=== PATIENT | male | born 1990 | race Caucasian/White ===

== ENCOUNTER 2021-01-22 14:44 | Emergency (ER) | payer BC, SELFPAY ==
[2021-01-22 15:19] VITALS: BP 125/72; PULSE 87; RESP 18; TEMP 36.7; O2SAT 98; BMI 23.4
--- NOTE | 2021-01-22 15:45 | ED_ITS ---
HPI - Headache General: Chief Complaint: Headache Stated Complaint: HEAD PAIN Time Seen by Provider: 01/22/21 15:29 History of Present Illness: HPI Narrative: Patient's had a muscle contraction headache right side that is responded well to Toradol but not follow-up Flexeril. Patient has a sinus infection has been fine the last week and a half also. Headaches been intermittent the last week. Hurts when he looks down and moves his head. Works at a local [employer] MD elicited complaint: headache Onset (ago): day(s) Onset description: gradually Associated symptoms: Reports other (Sinus infection symptoms); Deny chest pain, fever(s), nausea, rash or vomiting Treatments prior to arrival: other (Today which relieved the headache but headache came back and Flexeril has not helped) Review of Systems Narrative: Pain comes up behind the right eye when tenderness in the neck is present Const: Denies: fever(s), chills or body aches Eyes: Denies: change in vision or blurry vision ENMT: Reports: nasal congestion, sinus pain and other; Denies: throat pain Card: Denies: chest pain or dyspnea on exertion Resp: Denies: dyspnea, productive cough or non-productive cough GI: Denies: abdominal pain, nausea or vomiting : Denies: difficulty urinating Musc: Reports: neck pain; Denies: extremity pain Skin/Breast: Denies: rash Neuro: Reports: headache(s) Psych: Denies: anxiety or depression [place]/Lymph: Denies: easy bruising Physical Exam Const: COMMON NORMALS: no acute distress, average body habitus and patient oriented x3 HENMT: COMMON NORMALS: normocephalic and TM's normal bilaterally HEAD & SCALP: normal to inspection and normocephalic FACE & SINUS: normal facial exam NOSE: Nasal discharge present purulent TYMPANIC MEMBRANE: TM's normal bilaterally Eye: COMMON NORMALS: conjunctivae normal GENERAL EYE: appearance normal, both eyes and all related structures CONJUNCTIVA: Yes conjunctivae normal Neck/C-Spine: COMMON NORMALS: no JVD OTHER: Musculoskeletal tenderness right side extending to the base of the skull Chest: COMMONS NORMALS: normal inspection of the chest Resp: COMMON NORMALS: normal respiratory effort and clear to auscultation bilaterally AUSCULTATION: clear to auscultation bilaterally Cardio: COMMON NORMALS: no JVD, regular rate and regular rhythm RATE: regular rate RHYTHM: regular rhythm GI: COMMON NORMALS: Normal to inspection, nondistended, normoactive bowel sounds present Extremity: COMMON NORMALS: normal to inspection and full ROM Neuro: COMMON NORMALS: patient oriented x3 Course Vital Signs: Vital signs: Vital Signs Temperature 98.1 F 01/22/21 15:19 Pulse Rate 87 01/22/21 15:19 Respiratory Rate 18 01/22/21 15:19 Blood Pressure 125/72 01/22/21 15:19 Pulse Oximetry 98 01/22/21 15:19 Discharge Plan Discharge Patient Disposition: Home Clinical Impression: Headache Qualifiers: Headache type: tension-type Headache chronicity pattern: episodic headache Intractability: intractable Qualified Code(s): G44.211 - Episodic tension-type headache, intractable Sinusitis Qualifiers: Sinusitis location: maxillary Chronicity: acute Recurrence: non-recurrent Qualified Code(s): J01.00 - Acute maxillary sinusitis, unspecified Condition: Stable Prescriptions: New Fioricet 50-300-40 mg capsule 1 cap PO Q6H PRN (Reason: pain) Qty: 14 RF: 0 Augmentin 875-125 mg tablet 1 tab PO BID Qty: 14 RF: 0 Discharge Orders: Discharge ED (Routine); Ordered 01/22/21 Ordered By: Narayan Ramos Referrals: Willi Knapp MD [Primary Care Provider] - Discharge Diet: Usual diet Discharge Activity: Increase activity as tolerated Patient Instructions: Tension Headache (ED), Rhinosinusitis (ED) Activity Restrictions/Additional Instructions: Follow-up with medical provider as directed. Take medications as prescribed. Return to the ER or your medical provider if condition worsens. Please read and understand discharge instructions. If any questions ask please. Stand Alone Forms: Work/School Release Coding Level of Care Code ED [employer] for Lacey Lin
[2021-01-22 16:00] VITALS: PULSE 92; RESP 18; O2SAT 98
== END 2021-01-22 16:01 | disposition home or self-care (01) ==
PROVIDERS: Emergency Provider Nurse Practitioner Family; PCP Family Medicine
DX: G44.211 Episodic tension-type headache, intractable (principal); J01.00 Acute maxillary sinusitis, unspecified
CPT/HCPCS: 99282

== ENCOUNTER → 2023-07-12 15:28 | Outpatient (BNVA) | payer BC, SELFPAY | PROVIDERS: PCP Family Medicine; Visit Provider Family Medicine | DX: Z51.81 Encounter for therapeutic drug level monitoring (principal); Z00.00 Encounter for general adult medical examination without abnormal findings | CPT/HCPCS: 80053; 85025 ==